=== PATIENT | female | born 1955 | race Caucasian/White ===

== ENCOUNTER → 2023-09-19 11:12 | Outpatient (REF) | payer OTHER, SELFPAY ==
[2023-09-19 16:19] LABS: % Basophils 0.8 % (0-2); % Eosinophils 1.6 % (0-6); % Immature Granulocytes 0.5 % (0-0.5); % Lymphocytes 25.6 % (20.5-51.1); % Monocytes 5.5 % (1.7-9.3); Absolute Basophils 0.1 10^3/uL (0-0.2); Absolute Eosinophils 0.1 10^3/uL (0-0.7); Absolute Lymphocytes 1.6 10^3/uL (1.2-3.4); Absolute Monocytes 0.4 10^3/uL (0.1-0.6); Absolute Neutrophils 4.2 10^3/uL (1.4-6.5); Hematocrit 38.5 % (37.0-47.0); Hemoglobin 13.3 g/dL (12.0-16.0); Mean Corp Hgb Conc. 34.5 g/dL (33.0-37.0); Mean Corpuscular Hgb 31.1 pg (27.0-31.0); Mean Corpuscular Volume 90.2 fL (81.0-99.0); Mean Platelet Volume 10.3 fL (7.4-10.4); Nucleated Red Blood Cells % 0 %; Platelet Count 270 10^3/uL (130-400); Red Blood Cell Count 4.27 10^6/uL (4.20-5.40); Red Cell Dist. Width 12.2 % (11.5-14.5); White Blood Cell Count 6.3 10^3/uL (4.8-10.8)
[2023-09-19 16:30] LABS: Blood Urea Nitrogen 24 mg/dl (7-17); Calcium 9.8 mg/dl (8.4-10.2); Carbon Dioxide 29 mmol/L (22-30); Chloride 101 mmol/L (98-107); Glucose 107 mg/dl (70-99); Potassium 3.9 mmol/L (3.5-5.1); Sodium 137 mmol/L (135-145); eGFR > 60.00
== END ==
LOC: HWLAB 11:12
PROVIDERS: ATTENDING PHYSICIAN Specialist; FAMILY PHYSICIAN Internal Medicine
DX: Z01.818 Encounter for other preprocedural examination (principal)
CPT/HCPCS: 36415; 80048; 85025; 93005

== ENCOUNTER → 2023-12-24 12:32 | Outpatient (REF) | payer OTHER, SELFPAY ==
[2023-12-24 15:56] LABS: Blood Urea Nitrogen 24 mg/dl (7-17); Calcium 10.2 mg/dl (8.4-10.2); Carbon Dioxide 27 mmol/L (22-30); Chloride 98 mmol/L (98-107); Glucose 105 mg/dl (70-99); Potassium 4.6 mmol/L (3.5-5.1); Sodium 137 mmol/L (135-145); eGFR > 60.00
[2023-12-24 16:01] LABS: % Eosinophils 1.8 % (0-6); % Immature Granulocytes 0.2 % (0-0.5); % Monocytes 7.1 % (1.7-9.3); % Neutrophils 54.9 % (42.2-75.2); Absolute Basophils 0.1 10^3/uL (0-0.2); Absolute Eosinophils 0.1 10^3/uL (0-0.7); Absolute Lymphocytes 1.8 10^3/uL (1.2-3.4); Absolute Monocytes 0.4 10^3/uL (0.1-0.6); Absolute Neutrophils 2.8 10^3/uL (1.4-6.5); Hematocrit 37.7 % (37.0-47.0); Mean Corp Hgb Conc. 34.5 g/dL (33.0-37.0); Mean Corpuscular Hgb 30.4 pg (27.0-31.0); Mean Corpuscular Volume 88.3 fL (81.0-99.0); Mean Platelet Volume 9.9 fL (7.4-10.4); Nucleated Red Blood Cells % 0 %; Platelet Count 297 10^3/uL (130-400); Red Blood Cell Count 4.27 10^6/uL (4.20-5.40); Red Cell Dist. Width 11.9 % (11.5-14.5); White Blood Cell Count 5.1 10^3/uL (4.8-10.8)
== END ==
LOC: HWLAB 12:32
PROVIDERS: ATTENDING PHYSICIAN Specialist; FAMILY PHYSICIAN Internal Medicine
DX: Z01.818 Encounter for other preprocedural examination (principal)
CPT/HCPCS: 36415; 80048; 85025

== ENCOUNTER 2024-01-27 13:23 | Inpatient (IN) | payer OTHER, SELFPAY ==
[2024-01-27 08:33] VITALS: BP 154/94
--- NOTE | 2024-01-27 09:14 | ED.GENMED ---
History of Present Illness
General
Chief Complaint: Abdominal Pain
Source: patient
Exam Limitations: none
Time Seen by Provider: 01/27/24 08:38
Nursing documentation reviewed up to this point in time: agreed with
History of Present Illness
History of Present Illness:
pt is a 68 y/o F
s/p R TKR 10 days ago
on oxycodone and senna
started feeling constipated 3 days ago
decreased dose of oxy and now has not had any
tried doculax supp x 1 and colace x 1 no BM
having stool leaking some, incontinence
a lot of rectal pain and some mild loewr abd pain
no fever
nausea and lack of appetite, feels dehydrated
neve rhad abdominal surgery
no bleeding
Review of Systems
Review of Systems
Allergies reviewed?: Yes
All Other Systems: Not applicable
Phy Exam
Physical Exam
Physical Exam:
GENERAL: Alert , in no apparent distress
EYE: pupils equal and reactive
NECK: Supple
ENT: o/p clr, mmm.
CARDIAC: Regular rate and rhythm .
LUNGS: Clear breath sounds bilaterally, no acute respiratory distress, no wheezes/rales/rhonchi
ABDOMEN: Soft,minimal lower abd distension, no abdominal tenderness, no r/g, no cvat, normal bowel sounds
rectal: small nonthrombosed nonbleeding external hemorrhoid
fecal impaction
did not tolerate the disimpaction well
NEUROLOGICAL: Alert and oriented, no focal neuro deficits
SKIN: Warm and dry, skin intact.
MUSCULOSKELETAL: No edema, well perfused. neg mele's sign
PSYCH: Normal and appropriate interaction.
Course
Orders/Labs/Results
Orders:
Orders
01/27/24 09:12
Enema- Treatment ONCE
Type: Milk of Molasses
0.9% Sodium Chloride 1000 ml [Nss] 1,000 ml IV BOLUS
Iohexol [Omnipaque] See Protocol PO NOW STA
01/27/24 09:13
CT Abd/pel W Iv And Oral Contr Urgent
Comment:
Reason For Exam: rectal pain, constipatino, recent surgery
01/27/24 09:29
Ondansetron Injectable [Zofran] 4 mg IV NOW STA
01/27/24 09:39
Complete Blood Count/With Diff Urgent
Comprehensive Metabolic Panel Urgent
01/27/24 10:38
Ketorolac [Toradol] 15 mg IV NOW STA
01/27/24 12:48
Admit/Transfer Patient As Directed
Co-Sign Provider:
Level of Care: Inpatient admission
Assign to:: Medical/Surgical
Physician / Group: clarisa
Diagnosis: constipation
Reason for Hospitalization: constipation/fecal impaction
Expected length of stay greater than two midnights?: Yes
ELOS- Estimated Length of Stay in days: 2
I certify the patient meets the requirements for IP care: Yes
PRN Pain Medication Management As Directed
May give lesser potent ordered pain med per pt: Yes
preference::
Protocol:: Medication orders for pain may be administered in a
manner that supports deferring to patient preference
when the pt is:
- Requesting an ordered lesser potent pain medication.
Least to most potent pain medications are defined
as: acetaminophen < NSAID < tramadol < opioids
(morphine, oxycodone, hydromorphone).
- Requesting a lesser dose of the same medication IF
ORDERED.
- Requesting a less intrusive route of administration
if both routes are prescribed by the provider (PO <
IV).
01/27/24 12:49
Code Status As Directed
Resuscitation Status: Full Code
01/27/24 14:26
Bisacodyl [Dulcolax] 10 mg RECTAL [id number] PRN
Ondansetron Injectable [Zofran] 4 mg IV Q6HPRN PRN
Polyethylene Glycol Powder [Miralax] 17 grams PO BID
progesterone micronized 200 mg PO .USEASDIRECTD
01/27/24 14:26
Activity As Directed
Activity Level: As Tolerated
Vital Signs As Directed
Frequency: Per unit guidelines
DX Deep Vein Thrombosis Video Routine
01/27/24 Dinner
Clear Liquid
At Your Request: Full Participation
Does patient need a safe tray?: No
01/27/24 20:00
Calcium Carbonate/Vitamin D3 [Oscal 500 + D] 500 mg PO BID
Celecoxib [Celebrex] 100 mg PO BID
red yeast rice 600 mg PO BID
01/28/24 06:00
Complete Blood Count/With Diff IN AM
Comprehensive Metabolic Panel IN AM
01/28/24 08:00
Aspirin 325 mg PO DAILY
Estradiol [Estrace] 0.5 mg PO DAILY
Multivitamin [Theragran] 1 tablet PO DAILY
Abnormal Lab Results
01/27/24
09:39
WBC 11.6 H 10^3/uL
(4.8-10.8)
RBC 3.65 L 10^6/uL
(4.20-5.40)
Hgb 11.4 L g/dL
(12.0-16.0)
Hct 33.9 L %
(37.0-47.0)
MCH 31.2 H pg
(27.0-31.0)
Abs Immat Gran (auto) 0.1 H 10^3/uL
(0-0.05)
Absolute Neuts (auto) 10.3 H 10^3/uL
(1.4-6.5)
Absolute Lymphs (auto) 0.7 L 10^3/uL
(1.2-3.4)
Neutrophils % 88.6 H %
(42.2-75.2)
Lymphocytes % 5.9 L %
(20.5-51.1)
Chloride 108 H mmol/L
(98-107)
Glucose 116 H mg/dl
(70-99)
AST 43 H U/L
(14-36)
ALT 66 H U/L
(0-35)
Total Protein 6.0 L g/dl
(6.3-8.2)
01/27/24 09:39
01/27/24 09:39
Vital Signs
Initial and Last Documented VS:
Initial Vital Signs
Temp Pulse Resp BP Pulse Ox
98.2 F 90 18 154/94 98
01/27/24 08:33 01/27/24 08:33 01/27/24 08:33 01/27/24 08:33 01/27/24 08:33
Last Documented Vital Signs
Temp Pulse Resp BP Pulse Ox
98.8 F 73 16 126/74 99
01/27/24 14:42 01/27/24 14:42 01/27/24 14:42 01/27/24 14:42 01/27/24 15:00
MDM/Problems Addressed
Differential Diagnosis Includes:
CONSTIPATION, STERCORAL COLITIS, PROCTITIS, RECTAL ABSCESS, HEMORRHOID, BOWEL OBSTRUCTION, DEHYDATION
MDM/Problems Addressed:
68 y/o F with h/o recent TKR 10 days ago on oxycodone developed constipation 3 dyas ago, tried a few things without relief; severe rectal pain/pressure, stool leaking around fecal impaction; unable to eat, nauseated:
no fever, significant tenderness rectum with small ext nonbleeding hemorrhoid and fecal impaction; she did not tolerate disimpaction, only able to remove small stool nonbloody
ct shows fecal impaction and stercoral colitis
wbc 11.6;
*Critical Care Note
Total Time (30-74mins, 75-104mins- exclusive of procedures): Not Applicable
ED Attending Note
-
Portions of this chart may have been created with voice recognition software.� Occasional wrong word or��sound alike� substitutions may have occurred due to the inherent limitations of voice recognition software.
Discharge Plan
Departure
Patient Disposition: Admit
Date of Disposition: 01/27/24
Time of Disposition: 12:23
Admit to: Med/Surg
Presentation/result/management discussed w/ accepting MD/DO: Hospitalist
Condition: Fair
Covid-19: Not Applicable
Discharge Problem:
Stercoral colitis
Interventions
Interventions:
*Risk Screen - Suicide Last Done: 01/27/24 08:33
*General Assessment Last Done: 01/27/24 08:33
*Neglect/Abuse Screening Last Done: 01/27/24 08:33
ED- Fall Risk Assessment Last Done: 01/27/24 14:21
*ED COVID-19 Vaccine History Last Done: 01/27/24 08:33
*Nursing Disposition Last Done: 01/27/24 14:21
AT-Nstveo-Flfgydcexb Assessment Last Done: 01/27/24 10:38
Discharge Date and Time
Discharge Date/Time: 01/27/24 14:22
[2024-01-27] MEDS: NSS 1000 IV (09:37)
[2024-01-27] MEDS: OMNIPAQUE 50 ML PO (09:37)
[2024-01-27 09:51] LABS: % Basophils 0.3 % (0-2); % Eosinophils 0.3 % (0-6); % Immature Granulocytes 0.4 % (0-0.5); % Lymphocytes 5.9 % (20.5-51.1); % Monocytes 4.5 % (1.7-9.3); % Neutrophils 88.6 % (42.2-75.2); Absolute Immature Granulocytes 0.1 10^3/uL (0-0.05); Absolute Lymphocytes 0.7 10^3/uL (1.2-3.4); Absolute Monocytes 0.5 10^3/uL (0.1-0.6); Absolute Neutrophils 10.3 10^3/uL (1.4-6.5); Hematocrit 33.9 % (37.0-47.0); Hemoglobin 11.4 g/dL (12.0-16.0); Mean Corp Hgb Conc. 33.6 g/dL (33.0-37.0); Mean Corpuscular Hgb 31.2 pg (27.0-31.0); Mean Corpuscular Volume 92.9 fL (81.0-99.0); Mean Platelet Volume 8.8 fL (7.4-10.4); Nucleated Red Blood Cells % 0 %; Platelet Count 305 10^3/uL (130-400); Red Blood Cell Count 3.65 10^6/uL (4.20-5.40); Red Cell Dist. Width 12.5 % (11.5-14.5); White Blood Cell Count 11.6 10^3/uL (4.8-10.8)
[2024-01-27 10:06] LABS: ALT (SGPT) 66 U/L (0-35); AST (SGOT) 43 U/L (14-36); Albumin 3.7 g/dl (3.5-5.0); Alkaline Phosphatase 73 U/L (38-126); Blood Urea Nitrogen 14 mg/dl (7-17); Calcium 9.2 mg/dl (8.4-10.2); Carbon Dioxide 25 mmol/L (22-30); Chloride 108 mmol/L (98-107); Glucose 116 mg/dl (70-99); Potassium 3.8 mmol/L (3.5-5.1); Sodium 143 mmol/L (135-145); Total Bilirubin 0.6 mg/dl (0.2-1.3); eGFR > 60.00
[2024-01-27 10:38] VITALS: BP 133/85
[2024-01-27] MEDS: TORADOL 15 MG IV ×2 (10:44→17:10)
[2024-01-27 12:47] VITALS: BP 125/74
--- NOTE | 2024-01-27 12:54 | HPS.HSE ---
Addendum entered and electronically signed by Lizzie aZman MD 01/27/24 14:02:
Toradol for pain.
Original Note:
Family Physician
-
Family Physician: Armani Britton
Chief Complaint
-
constipation
History of Present Illness
68-year-old female past medical history of right total knee replacement 12 days ago ago presenting with constipation 3 days ago. She was already on oxycodone prior to the surgery but was started on higher dose of oxycodone every 6 hours and Senokot
after the surgery. She tried Dulcolax suppository once without a bowel movement she is having stool leaking. She is having a lot of rectal pain and some mild lower abdominal pain. She denies any fevers or chills. She has nausea and lack of
appetite. Denies any rectal bleeding. She has chills.
She stopped taking oxycodone 3 days ago.
She drinks alcohol few times a week. Denies smoking.
Medical History
Past Medical History
Past Medical History: Reports Other (right total knee replacement 12 days ago ago )
Past Surgical History: Reports Other (right total knee replacement 12 days ago ago, left hip replacement )
Social History
Tobacco: Non-smoker
Alcohol: Occasional
Drug: None
Family History
Family History: Not pertinent
Allergies / Home Medications
Allergies reflects when Allergies were last updated in [employer].
Home Medications with original date entered in [employer]
Allergy/Medication List:
Allergies
Allergy/AdvReac Type Severity Reaction Status Date / Time
Penicillins Allergy Rash Verified 01/27/24 08:37
Home Medications
aspirin 325 mg tablet 325 mg PO DAILY 01/27/24
calcium 600 mg (as carbonate)-vitamin D3 5 mcg (200 unit) tablet 1 tab PO BID 01/27/24
celecoxib 100 mg capsule 100 mg PO BID 01/27/24
diphenhydramine 25 mg-acetaminophen 500 mg tablet (Tylenol PM Extra Strength) 1 - 2 tab PO HSPRN PRN sleep 01/27/24
estradiol 0.5 mg tablet 0.5 mg PO DAILY 01/27/24
jvlfnsliucxf-bludfhcz-nnrujq tablet 1 tab PO DAILY 01/27/24
progesterone micronized 200 mg capsule 200 mg PO USEASDIRECTD 01/27/24
red yeast rice 600 mg capsule 600 mg PO BID 01/27/24
Review of Systems
-
History Source: Patient
A 12 point ROS was completed and negative except as noted: Yes
Constitutional: Reports No Symptoms
EENT: Reports No Symptoms
Respiratory: Reports No Symptoms
Cardiac: Reports No Symptoms
Abdomen/GI: Reports No Symptoms
: Reports No Symptoms
Musculoskeletal: Reports No Symptoms
Skin: Reports No Symptoms
Neurological: Reports No Symptoms
Endocrine: Reports No Symptoms
Hematologic/Lymphatic: Reports No Symptoms
Psych: Reports No Symptoms
Physical Exam
Vital Signs
Vital Signs
Temp Pulse Resp BP Pulse Ox
98.2 F 78 18 125/74 99
01/27/24 08:33 01/27/24 12:47 01/27/24 08:33 01/27/24 12:47 01/27/24 12:47
Physical Exam
General: Well Developed, Well Nourished and No Apparent Distress
HEENT: NormoCephalic, Moist mucous membranes and Atraumatic
Respiratory: Clear
Cardiac: S1/S2 and Regular Rhythm; No Murmur or Rub
GI: Soft, Normal Bowel Sounds, Tender and Distended; No Organomegaly
Rectal: Deferred by Provider
Musculoskeletal: No Clubbing, No Cyanosis and No Edema
Skin: No Rash
Neuro: Nonfocal/grossly intact
Laboratory Results
-
01/27/24 09:39
01/27/24 09:39
Laboratory Results
Total Bilirubin 0.6 mg/dl (0.2-1.3) 01/27/24 09:39
AST 43 U/L (14-36) H 01/27/24 09:39
ALT 66 U/L (0-35) H 01/27/24 09:39
Alkaline Phosphatase 73 U/L (38-126) 01/27/24 09:39
Data Reviewed
-
Lab Data: Labs Reviewed by me
Old Records: Reviewed
Impression/Plan
-
IMPRESSION:
PLAN:
# Fecal impaction/stercoral colitis secondary to oxycodone
-Mild leukocytosis
-CT abdomen pelvis shows large rectal stool and colonic stool burden without discrete obstruction likely secondary to constipation, mild wall thickening and swelling along the rectum likely stercoral colitis
-Attempted to be manually disimpacted but did not tolerate
-Given half enema without improvement
-Start MiraLAX twice daily, continue Dulcolax suppository as needed
-Consider repeat enema tomorrow
-Clear liquid diet
-Consider GI
# Possible urinary retention by imaging secondary to constipation
-Denies urinary symptoms
-Bladder scan protocol if difficulty urinary
# Mild transaminitis
-Outpatient follow-up
Recent total right knee replacement
-Continue postop aspirin for DVT prophylaxis
-Continue celecoxib
History of left hip replacement
Full code
DVT prophylaxis�aspirin
Clear liquid diet
[2024-01-27 14:33] VITALS: BMI 22.8
[2024-01-27 14:42] VITALS: BP 126/74
[2024-01-27] MEDS: MIRALAX 17 GRAMS PO ×2 (15:03→21:52)
[2024-01-27] MEDS: TYLENOL 650 MG PO ×2 (15:22→21:54)
--- NOTE | 2024-01-27 16:06 | PTCARENOTE ---
Patient admitted from ED into room 436-1, ambulated from stretcher to bed with cane. AAOx3, complaining of abdominal pain and a headache. Tylenol administered - see MAR. Patient oriented to room and plan of care. Call perla within reach.
[2024-01-27] MEDS: CELEBREX 100 MG PO (21:52)
[2024-01-27] MEDS: OSCAL 500 + D 500 MG PO (21:55)
[2024-01-27 22:47] VITALS: BP 127/72
[2024-01-28] MEDS: TORADOL 15 MG IV ×2 (02:02→07:56)
[2024-01-28 03:05] LABS: Hepatitis C Antibody Negative (Negative)
[2024-01-28] MEDS: TYLENOL 650 MG PO (07:26)
[2024-01-28 07:30] VITALS: BP 131/75
[2024-01-28] MEDS: CELEBREX 100 MG PO ×2 (07:56→19:24)
[2024-01-28] MEDS: MIRALAX 17 GRAMS PO ×2 (08:16→19:26)
[2024-01-28] MEDS: ESTRACE 0.5 MG PO (08:18)
[2024-01-28] MEDS: OSCAL 500 + D PO (08:32)
[2024-01-28] MEDS: THERAGRAN PO (08:33)
[2024-01-28 08:45] LABS: % Basophils 0.4 % (0-2); % Eosinophils 1.2 % (0-6); % Immature Granulocytes 0.4 % (0-0.5); % Lymphocytes 10.4 % (20.5-51.1); % Monocytes 5.8 % (1.7-9.3); % Neutrophils 81.8 % (42.2-75.2); Absolute Eosinophils 0.1 10^3/uL (0-0.7); Absolute Lymphocytes 1.1 10^3/uL (1.2-3.4); Absolute Monocytes 0.6 10^3/uL (0.1-0.6); Absolute Neutrophils 8.6 10^3/uL (1.4-6.5); Hematocrit 31.6 % (37.0-47.0); Hemoglobin 10.7 g/dL (12.0-16.0); Mean Corp Hgb Conc. 33.9 g/dL (33.0-37.0); Mean Corpuscular Hgb 31.5 pg (27.0-31.0); Mean Corpuscular Volume 92.9 fL (81.0-99.0); Mean Platelet Volume 9.1 fL (7.4-10.4); Nucleated Red Blood Cells % 0 %; Platelet Count 304 10^3/uL (130-400); Red Cell Dist. Width 12.7 % (11.5-14.5); White Blood Cell Count 10.5 10^3/uL (4.8-10.8)
[2024-01-28 09:29] LABS: ALT (SGPT) 52 U/L (0-35); AST (SGOT) 34 U/L (14-36); Albumin 3.3 g/dl (3.5-5.0); Alkaline Phosphatase 64 U/L (38-126); Blood Urea Nitrogen 16 mg/dl (7-17); Carbon Dioxide 24 mmol/L (22-30); Chloride 107 mmol/L (98-107); Estimated Creatinine Clearance 75 ml/min; Glucose 95 mg/dl (70-99); Sodium 140 mmol/L (135-145); Total Bilirubin 0.5 mg/dl (0.2-1.3); Total Protein 5.4 g/dl (6.3-8.2); eGFR > 60.00
[2024-01-28] MEDS: LEVAQUIN 100 IV (12:40)
[2024-01-28] MEDS: FLAGYL 500 MG 100 IV ×2 (12:40→18:43)
[2024-01-28] MEDS: ASPIRIN 325 MG PO (12:40)
--- NOTE | 2024-01-28 13:05 | W.PN.HOSP.TC ---
Addendum entered and electronically signed by Keaton Hudson MD 01/28/24 16:23:
Patient is in significant distress due to constipation. Tried enema this afternoon. Will monitor for response, if does not respond then will likely add mag citrate. GI evaluation if does not improve
Original Note:
Today's Communication/Plan
-
Monitor vital signs
see plan
Give enema now, if does not improve then will do back Synthroid
Consider GI evaluation if does not improve
Clears for now
Discussed with family at bedside
Limit opioid
Assessment / Plan
Assessment / Plan
General: Well Developed, Well Nourished and No Apparent Distress
HEENT: NormoCephalic, Moist mucous membranes and Atraumatic
Respiratory: Clear
Cardiac: S1/S2 and Regular Rhythm; No Murmur or Rub
GI: Soft, Normal Bowel Sounds, Tender and Distended
Rectal: Deferred by Provider
Musculoskeletal: No Edema
Neuro: Nonfocal/grossly intact
Fecal impaction/stercoral colitis secondary to oxycodone
-Mild leukocytosis
-CT abdomen pelvis shows large rectal stool and colonic stool burden without discrete obstruction likely secondary to constipation, mild wall thickening and swelling along the rectum likely stercoral colitis
-Attempted to be manually disimpacted in ED but did not tolerate
-Start MiraLAX twice daily, continue Dulcolax suppository as needed
give enema now; if no improvement then mag citrate
-Clear liquid diet
-Consider GI if doesnt improve
limit opioid use
# Possible urinary retention by imaging secondary to constipation
-Denies urinary symptoms
-Bladder scan protocol if difficulty urinary
# Mild transaminitis
-Outpatient follow-up
Recent total right knee replacement
-Continue postop aspirin for DVT prophylaxis
-Continue celecoxib
History of internal hemorrhoids
History of left hip replacement
Full code
DVT prophylaxis�aspirin
Anticipated Discharge: Within 24 hours
Subjective/Interval History
-
Date of Service: January 28, 2024
has some discomfort
Objective Data
-
Labs:
Laboratory Results
01/28/24
07:55
WBC 10.5
Hgb 10.7 L
Hct 31.6 L
Plt Count 304
Sodium 140
Potassium 4.0
Chloride 107
Carbon Dioxide 24
BUN 16
Creatinine 0.7
Glucose 95
Calcium 9.0
Total Bilirubin 0.5
AST 34
ALT 52 H
Alkaline Phosphatase 64
Vital Signs:
Vital Signs
Temp Pulse Resp BP Pulse Ox
98.6 F 75 18 131/75 97
01/28/24 07:30 01/28/24 07:30 01/28/24 07:30 01/28/24 07:30 01/28/24 07:30
I&O
01/27/24 01/28/24 01/29/24
06:59 06:59 06:59
Intake Total 240 / 240
Balance 240 / 240
[2024-01-28] MEDS: MORPHINE SULFATE 1 MG IV ×2 (14:04→20:20)
[2024-01-28 15:51] VITALS: BP 136/83
--- NOTE | 2024-01-28 16:00 | PTCARENOTE ---
1530 Administered milk and molasses enema as ordered per MD, after pt had large form BM. Pt felt better. Dr. Hudson notified, continue to monitor pt.
--- NOTE | 2024-01-28 16:57 | CM ---
traffic operations manager reviewed patient's chart and met with patient and patient lives with her spouse in a 1 story home, patient is independent with adl's and use a cane with ambulation. Patient plans on return to home when stable, no needs. Patient had
right total knee replacement a few weeks ago.
PCP: Dr rBitton
Pharmacy [facility]
Plan; Home when stable no needs.
[2024-01-28] MEDS: COLACE 100 MG PO (19:24)
[2024-01-28] MEDS: OSCAL 500 + D 500 MG PO (19:25)
[2024-01-28 22:54] VITALS: BP 113/65
[2024-01-29] MEDS: FLAGYL 500 MG 100 IV ×2 (02:57→11:00)
[2024-01-29] MEDS: TYLENOL 650 MG PO (03:03)
[2024-01-29 06:24] LABS: % Basophils 0.4 % (0-2); % Eosinophils 3.3 % (0-6); % Immature Granulocytes 0.4 % (0-0.5); % Monocytes 7.1 % (1.7-9.3); % Neutrophils 73.8 % (42.2-75.2); Absolute Eosinophils 0.3 10^3/uL (0-0.7); Absolute Lymphocytes 1.2 10^3/uL (1.2-3.4); Absolute Monocytes 0.6 10^3/uL (0.1-0.6); Absolute Neutrophils 5.9 10^3/uL (1.4-6.5); Hematocrit 30.7 % (37.0-47.0); Hemoglobin 10.6 g/dL (12.0-16.0); Mean Corp Hgb Conc. 34.5 g/dL (33.0-37.0); Mean Corpuscular Hgb 31.9 pg (27.0-31.0); Mean Corpuscular Volume 92.5 fL (81.0-99.0); Mean Platelet Volume 9.2 fL (7.4-10.4); Nucleated Red Blood Cells % 0 %; Platelet Count 275 10^3/uL (130-400); Red Blood Cell Count 3.32 10^6/uL (4.20-5.40); Red Cell Dist. Width 12.5 % (11.5-14.5)
[2024-01-29 06:48] LABS: ALT (SGPT) 50 U/L (0-35); AST (SGOT) 35 U/L (14-36); Albumin 3.1 g/dl (3.5-5.0); Alkaline Phosphatase 57 U/L (38-126); Blood Urea Nitrogen 13 mg/dl (7-17); Calcium 8.9 mg/dl (8.4-10.2); Carbon Dioxide 24 mmol/L (22-30); Chloride 106 mmol/L (98-107); Estimated Creatinine Clearance 75 ml/min; Glucose 93 mg/dl (70-99); Potassium 4.1 mmol/L (3.5-5.1); Sodium 140 mmol/L (135-145); Total Bilirubin 0.5 mg/dl (0.2-1.3); Total Protein 5.1 g/dl (6.3-8.2); eGFR > 60.00
[2024-01-29 07:54] VITALS: BP 124/72
[2024-01-29] MEDS: CELEBREX 100 MG PO (07:55)
[2024-01-29] MEDS: ASPIRIN 325 MG PO (07:55)
[2024-01-29] MEDS: ESTRACE 0.5 MG PO (07:55)
[2024-01-29] MEDS: MIRALAX 17 GRAMS PO (07:55)
[2024-01-29] MEDS: THERAGRAN 1 TABLET PO (07:55)
[2024-01-29] MEDS: COLACE 100 MG PO (07:56)
[2024-01-29] MEDS: OSCAL 500 + D 500 MG PO (07:56)
--- NOTE | 2024-01-29 09:26 | CM ---
Patient seen beside.
Per patient possible d/c later if she tolerates a diet. Patient stated she is hungry.
Per patient no home care needs.
IMM completed.
Plan: d/c home no needs, spouse will transport.
[2024-01-29] MEDS: LEVAQUIN 100 IV (11:00)
--- NOTE | 2024-01-29 11:16 | W.PN.HOSP.TC ---
Today's Communication/Plan
-
Monitor vitals
See plan
Now with multiple bowel movements, advance diet and discharge today
Time of discharge 37 minutes
Assessment / Plan
Assessment / Plan
General: Well Developed, Well Nourished and No Apparent Distress
HEENT: NormoCephalic, Moist mucous membranes and Atraumatic
Respiratory: Clear
Cardiac: S1/S2 and Regular Rhythm; No Murmur or Rub
GI: Soft, Normal Bowel Sounds, non tender
Musculoskeletal: No Edema
Neuro: Nonfocal/grossly intact
Fecal impaction/stercoral colitis secondary to oxycodone
-Mild leukocytosis
-CT abdomen pelvis shows large rectal stool and colonic stool burden without discrete obstruction likely secondary to constipation, mild wall thickening and swelling along the rectum likely stercoral colitis
-Attempted to be manually disimpacted in ED but did not tolerate
-Start MiraLAX twice daily, continue Dulcolax suppository as needed
Status post enema will 01/27, now with multiple bowel movements and feeling better. Advance diet. Discharge today
advance to regular diet
-Consider GI if doesnt improve
limit opioid use
# Possible urinary retention by imaging secondary to constipation
-Denies urinary symptoms
-Bladder scan protocol if difficulty urinary
# Mild transaminitis
-Outpatient follow-up
Recent total right knee replacement
-Continue postop aspirin for DVT prophylaxis
-Continue celecoxib
History of internal hemorrhoids
History of left hip replacement
Full code
DVT prophylaxis�aspirin
Anticipated Discharge: Today
Subjective/Interval History
-
Date of Service: January 29, 2024
Denies pain
Objective Data
-
Labs:
Laboratory Results
01/29/24
05:57
WBC 8.0
Hgb 10.6 L
Hct 30.7 L
Plt Count 275
Sodium 140
Potassium 4.1
Chloride 106
Carbon Dioxide 24
BUN 13
Creatinine 0.7
Glucose 93
Calcium 8.9
Total Bilirubin 0.5
AST 35
ALT 50 H
Alkaline Phosphatase 57
Vital Signs:
Vital Signs
Temp Pulse Resp BP Pulse Ox
98.2 F 75 18 124/72 96
01/29/24 07:54 01/29/24 07:54 01/29/24 07:54 01/29/24 07:54 01/29/24 07:54
I&O
01/28/24 01/29/24 01/30/24
06:59 06:59 06:59
Intake Total 240 / 240 1670 / 1670
Balance 240 / 240 1670 / 1670
[2024-01-29 11:53] VITALS: BP 119/73
--- NOTE | 2024-01-29 14:16 | W.DCSUMMARY ---
Discharge Summary
Discharge Data
Date of Admission: 01/27/24
Date of Discharge: 01/29/24
-
Pending Results: No
Hospital Course
68-year-old female with past medical history of recent total knee replacement, internal hemorrhoids, left hip replacement came to the hospital with abdominal pain known to have fecal impaction from severe constipation and stercoral colitis. Patient
was initially started on oral laxatives. Her symptoms still did not improve so she was given multiple times enema. After enema, she was able to have multiple bowel movements which improved her symptoms. She was then able to tolerate regular diet
prior to discharge. Since her symptoms continue to improve and she was able to tolerate diet, she was then discharged home with instructions to follow-up with her PCP outpatient.
Discharge Plan
-
Patient Disposition: Home (Routine Discharge)
Discharge Diagnosis/Procedures: Fecal impaction due to severe constipation/stercoral colitis secondary to opioids
Condition: Good
Diet: As tolerated
Activity: As tolerated
Driving Restrictions: As prior to admission
Bathing Restrictions: None
Referrals:
Armani Britton MD [Family Provider] - in less than 1 week
Prescriptions:
New
polyethylene glycol 3350 17 gram Powder In Packet
17 g PO DAILY Qty: 0 0RF
Continued
progesterone micronized 200 mg capsule
200 mg PO USEASDIRECTD
Rx Instructions:
TAKE 1 CAPSULE AT BEDTIME FOR 12 DAYS DIRECTED. REPEAT CYCLE MONTHLY
estradiol 0.5 mg tablet
0.5 mg PO DAILY
aspirin 325 mg Tablet
325 mg PO DAILY
Patient Comments:
01/27/2024: For 30 days after surgery
calcium carbonate-vitamin D3 600 mg-5 mcg (200 unit) Tablet
1 tab PO BID
diphenhydramine-acetaminophen [Tylenol PM Extra Strength] 25-500 mg Tablet
1 - 2 tab PO HSPRN PRN (Reason: sleep)
celecoxib 100 mg capsule
100 mg PO BID
Patient Comments:
01/27/2024: TAKE 1 CAPSULE BY MOUTH WITH FOOD TWICE A DAY X 15 DAYS. Then 200mg Daily
yczutcwfzuyg-gqefsspj-nrclxg Tablet
1 tab PO DAILY
red yeast rice 600 mg Capsule
600 mg PO BID
Discharge Orders:
Discharge Patient (As Directed); Ordered 01/29/24
Ordered By: Keaton Hudson
Discharge Date and Time
Discharge Date/Time: 01/29/24 13:03
Print Language: CROATIAN
== END 2024-01-29 13:03 | disposition home or self-care (01) | DRG 392 ==
LOC: 4 WEST ACU 13:23
PROVIDERS: Physician Assistant; ADMITTING PHYSICIAN Hospitalist; ATTENDING PHYSICIAN Internal Medicine; EMERGENCY PHYSICIAN Student in an Organized Health Care Education/Training Program; FAMILY PHYSICIAN Internal Medicine
DX: K52.89 Other specified noninfective gastroenteritis and colitis (principal); K59.03 Drug induced constipation; T40.2X5A Adverse effect of other opioids, initial encounter; D72.829 Elevated white blood cell count, unspecified; R74.01 Elevation of levels of liver transaminase levels; Z79.82 Long term (current) use of aspirin; Z79.899 Other long term (current) drug therapy; Z96.642 Presence of left artificial hip joint; Z96.651 Presence of right artificial knee joint; Z88.0 Allergy status to penicillin
CPT/HCPCS: 74177; 80053; 85025; 86803; 96361; 96374; 99285; Q9967

== ENCOUNTER → 2024-03-11 11:20 | Outpatient (REF) | payer OTHER, SELFPAY | LOC: WDC 11:20 | PROVIDERS: ATTENDING PHYSICIAN Obstetrics & Gynecology Gynecology; FAMILY PHYSICIAN Internal Medicine | DX: Z12.31 Encounter for screening mammogram for malignant neoplasm of breast (principal) | CPT/HCPCS: 77063; 77067 ==

== ENCOUNTER → 2024-04-28 09:12 | Outpatient (REF) | payer OTHER, SELFPAY | LOC: RAD 09:12 | PROVIDERS: ATTENDING PHYSICIAN Internal Medicine | DX: M85.89 Other specified disorders of bone density and structure, multiple sites (principal); Z79.890 Hormone replacement therapy; Z13.820 Encounter for screening for osteoporosis | CPT/HCPCS: 77080 ==

== ENCOUNTER → 2024-09-25 12:56 | Outpatient (REF) | payer OTHER, SELFPAY | LOC: HWRAD 12:56 | PROVIDERS: ATTENDING PHYSICIAN Student in an Organized Health Care Education/Training Program; FAMILY PHYSICIAN Internal Medicine | DX: M79.641 Pain in right hand (principal); M79.642 Pain in left hand | CPT/HCPCS: 73120 ==